=== PATIENT | male | born 1995 | race Hispanic/Latino ===

== ENCOUNTER → 2019-04-21 | Outpatient (CLI) | payer OTHER ==
--- NOTE | 2019-04-21 14:53 | ULT ---
Scrotal sonogram with duplex evaluation HISTORY: Right testicular pain. FINDINGS: Right testicle is 4.3 cm greatest length and the left is 4.2 cm. Each has a normal appearan ce with good color and spectral Doppler flow. Oval cyst of the left epididymal head measures up to 1.1 cm. IMPRESSION: No evidence of testicular mass or torsion. Incidental note of left epididymal head cyst.
== END ==
LOC: BICULT 17:41
DX: N50.811 Right testicular pain (principal)
CPT/HCPCS: 76870; 93976

== ENCOUNTER 2020-12-02 11:17 | Outpatient (CLI) | payer BC | END 2020-12-02 11:18 | disposition home or self-care (01) | LOC: BICULT 11:17 | PROVIDERS: ATTEND Nurse Practitioner Family | DX: R10.31 Right lower quadrant pain (principal) | CPT/HCPCS: 76705 ==